=== PATIENT | male | born 1970 | race Caucasian/White ===

== ENCOUNTER 2017-04-21 12:15 | Emergency (ER) | payer SELFPAY ==
[~2017-04-21] VITALS: Ht 167.6 cm; Wt 90.7 kg
[2017-04-21 14:19] VITALS: BP 134/88
== END 2017-04-21 14:19 | disposition other institution (70) ==
LOC: ED 12:15
DX: S63.501A Unspecified sprain of right wrist, initial encounter (principal); F17.290 Nicotine dependence, other tobacco product, uncomplicated; F15.20 Other stimulant dependence, uncomplicated; X58.XXXA Exposure to other specified factors, initial encounter; Y93.89 Activity, other specified; Y92.89 Other specified places as the place of occurrence of the external cause; Y99.8 Other external cause status
CPT/HCPCS: A4570

== ENCOUNTER 2017-04-21 12:15 | Emergency (ER) | payer OTHER | END 2017-04-21 14:19 | disposition other institution (70) | LOC: ED 12:15 | DX: Z02.89 Encounter for other administrative examinations (principal) | CPT/HCPCS: A4570 ==